=== PATIENT | male | born 1955 | race Caucasian/White ===

== ENCOUNTER 2017-12-16 19:19 | Emergency (ER) | payer OTHER ==
[~2017-12-16] VITALS: Ht 177.8 cm; Wt 81.6 kg
[2017-12-16] MEDS ORDERED: OXYBUTYNIN CHLOR5 MG (20:11)
[2017-12-16] MEDS ORDERED: METOPROLOL SUC100 MG (20:11)
[2017-12-16] MEDS ORDERED: FENOFIBRATE145 MG (20:11)
[2017-12-16] MEDS ORDERED: FORTAMET1000 MG (20:11)
[2017-12-16] MEDS ORDERED: ASPIR 8181 MG (20:12)
[2017-12-16] MEDS ORDERED: OMEGA-31000 MG (20:12)
== END 2017-12-16 21:59 | disposition home or self-care (01) ==
LOC: ER 19:19
DX: K06.8 Other specified disorders of gingiva and edentulous alveolar ridge (principal)

== ENCOUNTER 2021-09-20 10:34 | Emergency (ER) | payer OTHER ==
[~2021-09-20] VITALS: Ht 175.3 cm; Wt 83.9 kg
[~2021-09-20 10:34] MED LIST: ASPIR 8181 MG; FENOFIBRATE145 MG; FORTAMET1000 MG; METOPROLOL SUC100 MG; OMEGA-31000 MG; OXYBUTYNIN CHLOR5 MG
[2021-09-20] MEDS ORDERED: CRESTOR5 MG PO (10:45)
[2021-09-20] MEDS ORDERED: PROSCAR5 MG PO (10:46)
[2021-09-20] MEDS ORDERED: APRESOLINE 10MG10 MG PO (10:46)
[2021-09-20] MEDS ORDERED: CARVEDILOL ER40 MG (10:46)
[2021-09-20] MEDS ORDERED: GLIMEPIRIDE1 M1 PO (10:47)
[2021-09-20] MEDS ORDERED: HYDROCHLOROTHIA50 MG (10:49)
[2021-09-20] MEDS ORDERED: LOTENSIN HCT 11 EACH PO (10:49)
[2021-09-20] MEDS ORDERED: GLUMETZA500 MG (10:49)
== END 2021-09-20 14:31 | disposition home or self-care (01) ==
LOC: ER 10:34
DX: S00.83XA Contusion of other part of head, initial encounter (principal); W06.XXXA Fall from bed, initial encounter; Y93.89 Activity, other specified; Y92.89 Other specified places as the place of occurrence of the external cause; Y99.8 Other external cause status